=== PATIENT | female | born 1965 ===

== ENCOUNTER 2025-08-11 08:10 | Outpatient (AMB) | payer BC, SELFPAY ==
--- NOTE | 2025-08-11 08:16 | MHC.OFFVIS ---
Vital Signs 08/11/25 08:19 Height 5 ft 2 in Weight 143 lb 8 oz BMI 26.2 BP 118/78 Blood Pressure Location Lt brachial Position Sitting Pulse 78 Pulse Source Pulse Oximeter Pulse Oximetry (%) 94 Oxygen Delivery Method Room Air Intake Visit Reasons: ENP-ISREAL Intake Note: Patient presents [employer] ISREAL. Hard time falling/staying asleep. Snoring/apnea/gasping. Goes to bed at 10:30 wakes up at 8-9am. Wakes up many times a night. No naps/headaches. States when she wakes up she gets dizzy/lightheadness. Last sleep study was few months ago(no apnea(SMS)). Has CPAP from 5years 01/2020 but doesnt use. Allergies duloxetine Allergy (Unknown, Verified 08/11/25 08:20) Unknown prochlorperazine Allergy (Unknown, Verified 08/11/25 08:20) Unknown HPI Comments Details: 59 year old female with difficulties sleeping. Had a HST January 2020 AHI was 19 desaturtion to 86% for 20 min, and used it for 2 years, and now she is unable to tolerate the mask anymore as she has allergies and repeated episodes of hives, takes danya qid, prn. She cleans the machine weekly. She is a nose breather and has a nasal mask, it is very uncomfortable. She wakes up dizzy daily, for years, she snores, gasps for air and has bruxism. She has witnessed apneas per . Her legs go crazy at night and can not shut off her mind she goes to bed at 2am. Memory and mood is stable, occasionally uses ativan for anxiety and major stress in her life. Had [facility]nd [facility] done [facility], they said she did not have ISREAL. She would like to get an in lab psg. FH + mom stroke, and dad htn, hld mesothelioma. [facility] Medical History Sleep apnea Moderate recurrent major depression IBS (irritable bowel syndrome) Hyperlipemia Anxiety and depression Abnormal Papanicolaou smear of cervix with positive human papilloma virus (HPV) test Social History Patient Tobacco Use Status: Never used Tobacco e-Cigarette/Vaping Use: Never Used Physical Exam Vital Signs: Last Vital Signs Pulse 78 08/11/25 08:19 BP 118/78 08/11/25 08:19 Pulse Ox 94 08/11/25 08:19 Oxygen Delivery Method Room Air 08/11/25 08:19 BMI result Body Mass Index 26.2 Const General: cooperative, comfortable and no acute distress Nutritional Appearance: average body habitus Orientation/consciousness: patient oriented x3 HEENT Face and sinus: Yes face symmetric Teeth and gingiva: other (mallmapti score is 4) Eyes Pupils: Equal, round and reactive pupils present Neck Neck: Yes full ROM Resp Effort & Inspection: normal respiratory effort and able to speak in complete sentences Neuro Other: upper extremity bilateral tremors, oral, mild tremors. General: patient oriented x3 and moves all extremities Cranial nerves: Yes Equal, round and reactive pupils present, Yes Normal accommodation reflex present, Yes Normal facial strength present, Yes Midline tongue present, Yes Ability to bilaterally rotate head present and Yes Ability to bilaterally elevate shoulders present Cognition (Neuro): normal cognition Gait exam (Neuro): Normal gait present Motor exam (neuro): 5/5 motor strength present throughout and Normal motor muscle tone present throughout Psych Appearance: grossly normal Mental Status: mental status grossly normal Thought process: Normal thought process present Results Reviewed Results Reviewed: reviewed HST on phone from 2019. Assessment & Plan Assessment & Plan (1) Excessive daytime sleepiness with normal sleep at night: Code(s): G47.19 - Other hypersomnia Category: Medical (2) ISREAL (obstructive sleep apnea): Code(s): G47.33 - Obstructive sleep apnea (adult) (pediatric) Category: Medical (3) Bruxism (teeth grinding): Code(s): F45.8 - Other somatoform disorders Category: Medical Plan PSG to rule out ISREAL Labs requested from [place]. RLS thrashing behavior at night. 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 (Santiago Harris) F/U Orders: Orders RT PSG in-lab sleep study Today F45.8 - Other somatoform disorders, G47.33 - Obstructive sleep apnea (adult) (pediatric) Patient Instructions: Please complete the following fasting labs to rule out deficiencies. CBC/CMP/ B12/ Vit D/ TSH/ Homocysteine and MMA/ Ferritin. Sleep Hygiene provided: set a scheduled bedtime and wake time to help regulate the circadian rhythm and balance the release of pituitary hormones. Sleep in a dark room, temperatures below 68 degrees, and no devices n bed. Limit caffeinated products 6 hours prior to bed, and limit fluids 2-4 hours prior to bed. Gentle night yoga, diffusing essential oils, and playing soft music can be relaxing. Coding Level of Care Code New Pt Level 4 (90251) Diagnoses Excessive daytime sleepiness with normal sleep at night G47.19 ISREAL (obstructive sleep apnea) G47.33 Bruxism (teeth grinding) F45.8
[2025-08-11 08:19] VITALS: BP 118/78; PULSE 78; O2SAT 94; BMI 26.2
== END 2025-08-11 08:58 | disposition home or self-care (01) ==
PROVIDERS: PCP Internal Medicine; Visit Provider Physician Assistant Medical
DX: G47.19 Other hypersomnia (principal); G47.33 Obstructive sleep apnea (adult) (pediatric); F45.8 Other somatoform disorders
CPT/HCPCS: 99204